=== PATIENT | male | born 1980 | race Two or more races ===

== ENCOUNTER → 2016-09-09 | Outpatient (CLI) | payer OTHER ==
--- NOTE | ~2016-09-09 | CR169 ---
[facility] A Service of [facility] & [facility] RADIOLOGY TEXT RESULTS PATIENT: KARINA BURNHAM LOCATION: [facility] : 76 UNIT #: [id number] AGE: [address]: Cristina William APRN SEX: M ORDER DR: [id number] [facility] [address] [place], [place] [address] [id number] O MR#: [id number] Acc #: [id number] NAME: KARINA BURNHAM : 1980 SEX: M STUDY DATE/TIME: 09/09/2016 11:05 UNIT: [facility] ROOM: STUDY DESCRIPTION: CR Knee 2 Views Lt Attending Physician: Cristina William A.P.R.N. Referring Physician: Cristina William A.P.R.N. Ordering Physician: Cristina William A.P.R.N. Primary Care Physician: Primary Care Physician No MEDICAL IMAGING REPORT This report is preliminary unless electronic signature is present EXAM Left knee 2 views 09/09/2016 HISTORY Left knee pain especially with flexion for 1 month. No known injury. FINDINGS AP and lateral projection of the knee shows smooth articular anatomy without indication of fracture or dislocation at the major weight-bearing surface of the knee. There is no indication of radiopaque foreign body about the knee surface or joint effusion. IMPRESSION Normal knee. Dictated by... Perez Saeed M.D. THIS IS AN ELECTRONICALLY VERIFIED REPORT Perez Saeed M.D. at 09/10/2016 9:54 AM ZAHIRA/cortez TD: 09/09/2016 13:20 JOB #: [id number] MEDICAL IMAGING REPORT Page 1 of 1 COPY
== END | disposition home or self-care (01) ==
LOC: CRAD 10:39
DX: M25.562 Pain in left knee (principal)
CPT/HCPCS: 73560